=== PATIENT | female | born 1955 | race Caucasian/White ===

== ENCOUNTER 2023-03-05 14:08 | Outpatient (AMB) | payer MEDICARE, SELFPAY ==
--- NOTE | 2023-03-05 14:12 | MHC.OFFVIS ---
Intake Vital Signs 03/05/23 14:18 Height 5 ft 5 in Weight 152 lb BMI 25.3 BP 142/72 H Blood Pressure Location Rt brachial Position Sitting Pulse 69 Pulse Source Pulse Oximeter Pulse Oximetry (%) 100 Oxygen Delivery Method Room Air Intake Visit Reasons: Neck Pain on Right Side/ Confirmed Intake Note: Pain today 6/10 Compressor Service Technician Required: No Accompanied by: Self / Same As Patient Allergies amoxicillin Allergy (Unknown, Verified 03/05/23 14:18) Hives HPI Neck Pain on Right Side/ Confirmed HPI Details 67-year-old female who presents today to the office for an evaluation of neck pain on right side. She has a history of multiple joint issues related to osteoarthritis including her hands, hips, neck, and knees. She has a history of osteoporosis. She has a very significant right sided neck pain for several months. Pain is rated as 4 to 6/10 in intensity. She had undergone a cortisone facet injection with temporary relief. She was being followed by [facility]. She used to take meloxicam and cyclobenzaprine for pain. She is a side sleeper. She is not using any pillow for support. She is currently taking gabapentin TID. Physical therapy was not effective. [facility] Medical History (Updated 03/05/23 @ 16:05 by Lai Hill MD) Plantar fasciitis Osteoporosis Hypothyroidism HTN (hypertension) Genital herpes simplex GERD (gastroesophageal reflux disease) Diverticulitis Depressive disorder Compression fracture of L1 vertebra with delayed healing Closed compression fracture of body of L1 vertebra Chronic insomnia Chest pain Arthritis Anxiety disorder Anemia Surgical History (Updated 03/05/23 @ 14:22 by Kimberly Jenkins) H/O colonoscopy H/O knee surgery History of surgical procedure on mouth Hx of appendectomy Review of Systems Const All systems reviewed & are unremarkable except as noted in HPI and below Physical Exam Vital Signs: Last Vital Signs Pulse 69 03/05/23 14:18 BP 142/72 H 03/05/23 14:18 Pulse Ox 100 03/05/23 14:18 Oxygen Delivery Method Room Air 03/05/23 14:18 BMI result Body Mass Index 25.3 General: Appears afebrile. Alert and oriented. Mood and affect appropriate. Follows and participates in conversation appropriately. Respiratory effort is unlabored. Able to transition from sit to stand unassisted. Ambulates with bilaterally normal heel strike and toe off. Neck flexion reproduces pain. Neck extension is limited but does not reproduce pain. Cervical facet loading is positive on both sides, right more than left. Results Reviewed Results Reviewed: No imaging is available for review. Assessment & Plan Assessment & Plan (1) Cervical spondylosis: Code(s): M47.812 - Spondylosis without myelopathy or radiculopathy, cervical region Plan 67-year-old female with axial neck pain. Will schedule her for a right diagnostic C3-C4-C5 medial branch blocks and then followed up with the potential right C3 medial branch nerve stimulator placement. Discussed the risks and benefits of the RFA and PNS with the patient in detail. All questions were answered. The patient is on board with the plan. Justification for interventional therapy: ? Patient with average pain > 6/10 ? Patient has exhausted conservative therapy Scribed for Dr. Hill by Dany Welch, medical collections, on 03/05/2023. I, Dr. Hill, have personally reviewed and agree with the information entered by the scribe. Coding Level of Care Code New Pt Level 3 (83474) Diagnoses Cervical spondylosis M47.812
[2023-03-05 14:18] VITALS: BP 142/72; PULSE 69; O2SAT 100; BMI 25.3
== END 2023-03-05 14:44 | disposition home or self-care (01) ==
PROVIDERS: PCP Nurse Practitioner Adult Health; Visit Provider Internal Medicine
DX: M47.812 Spondylosis without myelopathy or radiculopathy, cervical region (principal)
CPT/HCPCS: 99203

== ENCOUNTER → 2023-03-05 14:08 | Outpatient (BNVA) | payer MEDICARE, SELFPAY | PROVIDERS: PCP Nurse Practitioner Adult Health; Visit Provider Internal Medicine | DX: M47.812 Spondylosis without myelopathy or radiculopathy, cervical region (principal) | CPT/HCPCS: 99202 ==